=== PATIENT | female | born 2000 | race Two or more races ===

== ENCOUNTER 2020-01-31 15:18 | Emergency (ER) | payer MEDICAID ==
[~2020-01-31] VITALS: Ht 165.1 cm; Wt 55.0 kg
[2020-01-31 15:34] VITALS: BP 137/90
== END 2020-01-31 16:26 | disposition left against medical advice (07) ==
LOC: ER 15:18
DX: S01.112A Laceration without foreign body of left eyelid and periocular area, initial encounter (principal); Y07.03 Male partner, perpetrator of maltreatment and neglect; Y04.2XXA Assault by strike against or bumped into by another person, initial encounter; Y93.89 Activity, other specified; Y92.89 Other specified places as the place of occurrence of the external cause
CPT/HCPCS: 99281